=== PATIENT | female | born 1995 ===

== ENCOUNTER 2018-08-13 07:46 | Day surgery (SDC) | payer OTHER ==
[~2018-08-13 07:46] MED LIST: ATIVAN0.5 MG PO; ATIVAN2 M1 PO; WELLBUTRIN XL300 MG PO
[2018-08-13] MEDS ORDERED: PERCOCET 5-3251 EACH PO (13:20)
== END 2018-08-13 16:35 | disposition home or self-care (01) ==
LOC: CIR.AMB 07:46
DX: N80.1 Endometriosis of ovary (principal); N80.3 Endometriosis of pelvic peritoneum